=== PATIENT | female | born 1985 | race African-American/Black ===

== ENCOUNTER 2021-11-07 08:12 | Outpatient (REF) | payer OTHER, SELFPAY ==
[2021-11-07 11:19] LABS: Binax Internal Control QC Valid; Binax Lot number: 9864; Binax Now Covid-19 Ag Positive (Negative)
== END 2021-11-07 08:13 | disposition home or self-care (01) ==
LOC: HO.LAB 08:12
PROVIDERS: Visit Provider Internal Medicine
DX: Z20.822 Contact with and (suspected) exposure to COVID-19 (principal)
CPT/HCPCS: 36415; C9803